=== PATIENT | female | born 1985 | race African-American/Black ===

== ENCOUNTER → 2016-06-28 | Outpatient (CLI) | payer BC | END | disposition home or self-care (01) | LOC: LABWHC1 07:36 | PROVIDERS: ATTEND Obstetrics & Gynecology | DX: O26.90 Pregnancy related conditions, unspecified, unspecified trimester (principal); Z3A.00 Weeks of gestation of pregnancy not specified | CPT/HCPCS: 36415; 82950 ==

== ENCOUNTER 2016-08-08 10:42 | Inpatient (IN) | payer BC ==
--- NOTE | 2016-08-08 10:58 | P.HPOB ---
History of Present Illness H&P Date: 08/08/16 This is a 31-year-old -[place] female 4 para 3003 EDC 2016 at 38 3/7 wks, patient presents this morning with a history of spontaneous amniorrhexis, clear fluid at approximately 7:30 AM. She reports mild irregular contractions to follow. There has been no vaginal bleeding. Fetus is been active throughout the . Past medical history significant for asthma and hayfever. Past surgical history colposcopy of the cervix. Current medications vitamins daily. ALLERGIES no known medical ALLERGIES. Family history significant for hypertension and diabetes. 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 There is no history of tobacco alcohol or drug use. history is significant for asymmetric ventriculomegaly. [facility] has been following. Decision has been made to have the delivery here, platelets to be drawn. Dr. Manzo aware of patient's status. Blood type is O+, rubella status immune. Positive group B strep cultures. Gonorrhea and chlamydia cultures, HIV testing, hepatitis B surface antigen, urine culture all negative. Pap smear negative. VDRL nonreactive. On exam this is a pleasant black female, she is 5 foot 2-1/2 inches, approximately 155 pounds, vital signs are stable and she is afebrile. The general physical exam is within normal limits. The chest is clear. heart tones are in the 140s baseline with frequent accelerations, consistent with reactive NST. There are irregular uterine contractions noted. Cervix is 2 -3 cm dilated 75% effaced, -2 station, vertex presentation. There is clear fluid noted on the perineal body. Impression: 38-3/7 weeks intrauterine , here in early labor, group B strep cultures positive. 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 Plan: Penicillin G prophylaxis per hospital protocol. Oxytocin augmentation as needed. Most maternal and surveillance. Anticipate normal spontaneous vaginal delivery. Plan is for infant's platelets to be drawn. Consider ultrasound of the baby's head pending status. Past Medical History Past Medical History: No Reported History History of Any Multi-Drug Resistant Organisms: None Reported Past Surgical History: No Surgical Hx Reported Past Anesthesia/Blood Transfusion Reactions: No Reported Reaction Past Psychological History: No Psychological Hx Reported Smoking Status: Never smoker Past Alcohol Use History: None Reported Past Drug Use History: None Reported - Past Family History Brother(s) Family Medical History: Diabetes Mellitus Mother Family Medical History: Hypertension Medications and Allergies Home Medications Medication Instructions Recorded Confirmed Type Rtv-Plvf-Lufvn Acid 1 each PO DAILY 02/17/14 02/17/14 History [-U Capsule (formulary)] Allergies Allergy/AdvReac Type Severity Reaction Status Date / Time No Known Allergies Allergy Verified 02/17/14 07:34
[2016-08-08] MEDS ORDERED: OXYTOCIN 10 UNIT/ML 1 ML VIAL IM PRN (11:24)
[2016-08-08] MEDS ORDERED: METHYLERGONOVINE 0.2 MG/ML 1 ML AMP IM PRN (11:24)
[2016-08-08] MEDS ORDERED: LIDOCAINE 1% (PF) 10 MG/ML (30 ML SDV) SQ PRN (11:24)
[2016-08-08] MEDS ORDERED: TERBUTALINE 1 MG/ML VIAL SQ PRN (11:24)
[2016-08-08] MEDS ORDERED: PENICILLIN G POTASSIUM 5,000,000 UNIT in DEXTROSE 5% IN WATER 100 ML IV STA ×2 (11:24)
[2016-08-08] MEDS ORDERED: CARBOPROST TROMETHAMINE 250 MCG/ML 1 ML AMP IM PRN (11:24)
[2016-08-08] MEDS ORDERED: OXYTOCIN 30 UNITS/500 ML NS 30 UNIT in SALINE 1 500ML.BAG IV SCH ×2 (11:30→18:30)
[2016-08-08] MEDS ORDERED: LACTATED RINGERS 1,000 ML IV SCH (11:30)
[2016-08-08 11:33] LABS: Basophils % (A) 0 %; CH 30.4; CHCM 32.9; Eosinophils % (A) 1 %; HCT 33.2 % (34.0-46.0); HGB 10.8 gm/dL (11.4-16.0); Luc # (Auto) 0.12; Luc % (Auto) 2; Lymphocytes # (A) 1.1 k/uL (1.0-4.8); Lymphocytes % (A) 15 %; MCH 30.2 pg (25.0-35.0); MCHC 32.5 g/dL (31.0-37.0); Mean Platelet Volume 7.3; Monocytes # (A) 0.2 k/uL (0-1.0); Monocytes % (A) 2 %; Neutrophils # (A) 5.9 k/uL (1.3-7.7); Neutrophils % (A) 81 %; RBC 3.57 m/uL (3.80-5.40); RDW 13.9 % (11.5-15.5); WBC 7.3 k/uL (3.8-10.6); WBC (Perox) 8.25
[2016-08-08 13:21] VITALS: RESP 16
[2016-08-08] MEDS ORDERED: PENICILLIN G POTASSIUM 2,500,000 UNIT in DEXTROSE 5% IN WATER 100 ML IV SCH ×2 (15:25)
[2016-08-08] MEDS ORDERED: IBUPROFEN 600 MG TAB PO PRN (18:20)
[2016-08-08] MEDS ORDERED: diphenhydrAMINE 50 MG/ML 1 ML VIAL IVP PRN ×2 (18:20)
[2016-08-08] MEDS ORDERED: LANOLIN CREAM 5 GM TUBE TOPICAL PRN (18:20)
[2016-08-08] MEDS ORDERED: SIMETHICONE 80 MG CHEWABLE PO PRN (18:20)
[2016-08-08] MEDS ORDERED: ACETAMINOPHEN TAB 325 MG TAB PO PRN (18:20)
[2016-08-08] MEDS ORDERED: diphenhydrAMINE 25 MG CAP PO PRN (18:20)
[2016-08-08] MEDS ORDERED: WITCH HAZEL 1 EACH MED..PAD TOPICAL PRN (18:20)
[2016-08-08] MEDS ORDERED: diphenhydrAMINE 50 MG CAP PO PRN (18:20)
[2016-08-08] MEDS ORDERED: HYDROCORTISONE 2.5% RECTAL CREAM 30 GM TUBE RECTAL PRN (18:20)
[2016-08-08] MEDS ORDERED: BENZOCAINE/MENTHOL SPRAY 1 GM/SPRAY AEROSOL TOPICAL PRN (18:20)
--- NOTE | 2016-08-08 18:20 | P.PROBDLV ---
Vaginal Delivery Note - . Vaginal Delivery Note: Findings: Female in the vertex presentation with a nuchal cord 1. Apgars of 8 at 1 minute and 9 at 5 minutes weighing 6 pounds 0.5 ounces, 2735 g. Intact, three-vessel cord placenta. No perineal lacerations. EBL approximately 50 mL's. Delivery summary: This is a 31-year-old 4 para 3003 woman who presented at 38-3/7 weeks gestation with spontaneous rupture of membranes at 07 30. She was admitted and Pitocin augmentation of labor was initiated. She is group B strep positive and did receive prophylactic antibiotics per protocol. She progressed to 5 cm by approximately 1700. I was notified at approximately 1750 the patient was 8 cm dilated and proceeded to come to the hospital. By the time I arrived the baby had just delivered with a delivery time of 1803. The infant was in the warmer and appeared pink and vigorous. An intact, three- vessel cord placenta was then delivered after an approximately 5 minute third stage of labor. The vagina, cervix and perineum were inspected and no lacerations were noted. The uterus was massaged and was noted to be firm at the level of the umbilicus. Both middle mother and infant were doing well post delivery in the room. Counts were correct.
[2016-08-08] MEDS ORDERED: SENNOSIDES-DOCUSATE SODIUM 1 EACH TAB PO SCH (20:00)
[2016-08-08] MEDS ORDERED: ZOLPIDEM 5 MG TAB PO PRN (21:00)
[2016-08-09] MEDS ORDERED: IBUPROFEN 600 MG TAB PO ONE (00:45)
--- NOTE | 2016-08-09 10:31 | P.PNOBGVD ---
Subjective - Subjective Principal diagnosis: day 1 Interval history: She is feeling very well with minimal lochia, no pain and breast-feeding successfully. The was admitted to special care nursery secondary to abnormal CBC Patient reports: Reports appetite normal, Reports voiding normally, Reports pain well controlled, Reports ambulating normally [place]: doing well, in NICU Objective - Latest Vital Signs Latest vital signs: Vital Signs Temp Pulse Resp BP Pulse Ox 08/09/16 08:07 97.5 F L 82 16 100/58 08/09/16 04:00 98.0 F 79 16 110/62 08/09/16 00:00 97.9 F 82 16 102/50 08/08/16 20:18 98.3 F 88 16 108/69 08/08/16 19:48 98.3 F 102 H 16 135/65 08/08/16 19:18 98.3 F 85 16 121/75 08/08/16 18:48 85 16 128/73 08/08/16 18:33 97 16 133/76 08/08/16 18:18 97.2 F L 84 16 124/86 08/08/16 11:22 97.7 F 78 16 104/57 100 Intake and Output 08/08/16 08/09/16 08/09/16 22:59 06:59 14:59 Intake Total 500 Output Total 300 Balance 200 Intake: Intake, IV Titration 500 Amount Penicillin G Potassium 5, 500 000,000 unit In Dextrose 5% in Water 100 ml @ 100 mls/hr IV ONCE STA Rx#: [id number] Output: Estimated Blood Loss 300 Other: # Voids 1 2 2 - Exam Extremities: Present: normal Abdomen: Present: normal appearance, soft Uterus: Present: normal, firm - Labs Labs: Abnormal Lab Results - Last 24 Hours (Table) 08/08/16 Range/Units 11:10 RBC 3.57 L (3.80-5.40) m/uL Hgb 10.8 L (11.4-16.0) gm/dL Hct 33.2 L (34.0-46.0) % Assessment and Plan (1) Normal spontaneous vaginal delivery Narrative/Plan: day 1 status post normal spontaneous vaginal delivery. She is recovering well. Infant is currently being observed and treated with antibiotics in the special care nursery. Possible discharge home tomorrow. Current Visit: Yes Status: Acute Code(s): O80 - ENCOUNTER FOR FULL-TERM UNCOMPLICATED DELIVERY SNOMED Code(s): 45338027 (2) Nuchal cord Current Visit: Yes Status: Acute Code(s): O69.82X0 - LABOR AND DEL COMP BY OT CORD ENTANGLE, W/O COMPRSN, UNSP SNOMED Code(s): 735963846 (3) Spontaneous rupture of membranes Current Visit: Yes Status: Acute Code(s): DKC7438 - SNOMED Code(s): 579642599 (4) Carrier of group B Streptococcus Current Visit: No Status: Acute Code(s): Z22.330 - CARRIER OF GROUP B STREPTOCOCCUS SNOMED Code(s): 792443958
--- NOTE | 2016-08-10 11:34 | P.DS ---
Providers Date of admission: 08/08/16 10:42 Expected date of discharge: 08/10/16 Attending physician: Nicole Osei - Discharge Diagnosis(es) (1) Normal spontaneous vaginal delivery Current Visit: Yes Status: Acute (2) Nuchal cord Current Visit: Yes Status: Acute (3) Spontaneous rupture of membranes Current Visit: Yes Status: Acute (4) Carrier of group B Streptococcus Current Visit: No Status: Acute Hospital Course: This is a 31-year-old 4 now para 4 woman who presented at 37+ weeks gestation with spontaneous rupture of membranes. She was admitted and underwent Pitocin augmentation of labor. She received group B strep prophylactic antibiotics. She went on to have a precipitous delivery of a liveborn female infant over an intact perineum. Please see the delivery summary for details. The infant had findings of ventriculomegaly on ultrasound and was evaluated for platelet abnormalities postdelivery. The 's platelets were normal however there was evidence of elevated white blood cell count and CRP therefore the was admitted for antibiotics to the special care nursery. The patient's course was unremarkable. By day #1 she was ambulating and voiding without difficulty and tolerating a general diet. Her lochia was minimal. By day #2 she continued to do extremely well. She was breast-feeding successfully and her vital signs were stable. She was therefore discharged home with routine instructions for postoperative care and follow-up. Patient Condition at Discharge: Good Plan - Discharge Summary Discharge Medication List Mcr-Udrv-Zipds Acid [-U Capsule (formulary)] 1 each PO DAILY [History] Ibuprofen [Motrin] 600 mg PO Q6HR PRN #60 tab 02/18/14 [Rx] Follow up Appointment(s)/Referral(s): Nicole Osei MD [STAFF PHYSICIAN] - 6 Weeks Activity/Diet/Wound Care/Special Instructions: Follow-up in the office in 6 weeks . Call with any concerning signs or symptoms including heavy vaginal bleeding, severe abdominal pain, fever greater than 101, swelling or redness of the lower extremities, foul vaginal discharge, or signs of depression. Nothing in the vagina for 6 weeks after delivery, specifically no intercourse. Discharge Disposition: HOME SELF-CARE
[2016-08-10 16:09] VITALS: BP 112/63; PULSE 68; TEMP 98.6
== END 2016-08-10 18:48 | disposition home or self-care (01) | DRG 775 ==
LOC: 4FBP 10:42
PROVIDERS: ADMIT Obstetrics & Gynecology; ATTEND Obstetrics & Gynecology
PROC: 10E0XZZ Delivery of Products of Conception, External Approach (ICD-10-PCS; principal; 2016-08-08)
DX: O69.81X0 Labor and delivery complicated by cord around neck, without compression, not applicable or unspecified (principal); O35.0XX0 Maternal care for (suspected) central nervous system malformation in fetus, not applicable or unspecified; J45.909 Unspecified asthma, uncomplicated; O62.3 Precipitate labor; O99.52 Diseases of the respiratory system complicating childbirth; O99.824 Streptococcus B carrier state complicating childbirth; Z37.0 Single live birth; Z3A.37 37 weeks gestation of pregnancy; Z83.3 Family history of diabetes mellitus; Z82.49 Family history of ischemic heart disease and other diseases of the circulatory system; Z87.42 Personal history of other diseases of the female genital tract
CPT/HCPCS: 85025; 88307

== ENCOUNTER → 2019-11-11 | Outpatient (CLI) | payer BC | END | disposition home or self-care (01) | LOC: LABWHC1 09:39 | PROVIDERS: ATTEND Obstetrics & Gynecology | DX: Z36.9 Encounter for antenatal screening, unspecified (principal) | CPT/HCPCS: 36415; 82950 ==

== ENCOUNTER 2020-01-13 13:02 | Outpatient (CLI) | payer BC ==
[2020-01-13 14:40] VITALS: BP 119/70; PULSE 103; RESP 18; TEMP 97.2
--- NOTE | 2020-01-17 11:31 | P.MSEPDOC ---
Presenting Problems - Arrival Data Date of Arrival on Unit: 01/13/20 Time of Arrival on Unit: 13:02 Mode of Transport: Ambulatory - Complaint OB-Reason for Admission/Chief Complaint: Vaginal Bleeding Comment: pt presents to triage for spotting yesterday and today, had some cramping last night Medical History - Information : 5 Para: 4 Term: 4 : 0 Abortions: Spontaneous or Elective: 0 Number of Living Children: 4 - Gestational Age Gestational Age by ALMAZ (wks/days): 35 Weeks and 2 Days Review of Systems - Review of Systems Constitutional: No problems Breast: No problems ENT: No problems Cardiovascular: No problems Respiratory: No problems Gastrointestinal: No problems Genitourinary: No problems Musculoskeletal: No problems Neurological: No problems Skin: No problems Vital Signs - Temperature Temperature: 97.2 F Temperature Source: Temporal Artery Scan - Pulse Right Brachial Pulse Rate: 103 Pulse Assessment Method: Automatic Cuff - Respirations Respiratory Rate: 18 Oxygen Delivery Method: Room Air - Blood Pressure Right Arm Blood Pressure: 119/70 Blood Pressure Mean: 86 Blood Pressure Source: Automatic Cuff Medical Screen Scoring (Pre) - Cervical Exam Dilation: Exam Deferred Effacement: Exam Deferred Membranes: Intact - Uterine Contractions Frequency: N/A Duration: N/A Intensity: N/A - Maternal Vital Signs Maternal Temperature: N/A Maternal Blood Pressure: N/A Signs of Preeclampsia: N/A Maternal Respirations: N/A - Maternal Trauma Maternal Trauma: N/A - Assessment - Baby A Baseline FHR: 140 Heart Rate - NICHD Category: Category I (Normal) = 0 NST: Reactive Position: N/A Station: N/A - Total Score - Baby A Total Score - Baby A: 0 - Total Score - Baby B Total Score - Baby B: 0 - Total Score - Baby C Total Score - Baby C: 0 - Level of Risk - Baby A Level of Risk - Baby A: Low (0-5) - Level of Risk - Baby B Level of Risk - Baby B: Low (0-5) - Level of Risk - Baby C Level of Risk - Baby C: Low (0-5) Physician Notification (Pre) - Physician Notified Physician Notified Date: 01/13/20 Physician Notified Time: 13:36 New Order Received: Yes - Notification Comment Comment: pt has reactive nst, no bleeding noted by this RN, cervical exam done per order, 1/thick/high, orders to discharge pt home, she has scheduled apt on 01/[address] Osei, reviewed s/s of labor, kick counts, and increase fluids with pt, Disposition - Disposition OB Disposition: Triage, Discharge to home, Written follow up instructions reviewed Discharge Date: 01/13/20 Discharge Time: 13:45 I agree with the RN Medical Screening Exam: Yes Risk & Benefit of care provided described in d/c instruction: Yes Diagnosis: SPOTTING COMPLICATING , THIRD TRIMESTER
== END 2020-01-13 13:45 | disposition home or self-care (01) ==
LOC: FBPOP 13:02
PROVIDERS: ATTEND Obstetrics & Gynecology
DX: O26.853 Spotting complicating pregnancy, third trimester (principal); Z3A.35 35 weeks gestation of pregnancy
CPT/HCPCS: 59025; 99213

== ENCOUNTER 2020-02-12 00:55 | Inpatient (IN) | payer BC ==
[2020-02-12] MEDS ORDERED: LIDOCAINE 0.5% (PF) 5 MG/ML (50 ML SDV) SQ PRN (01:34)
[2020-02-12] MEDS ORDERED: TERBUTALINE 1 MG/ML VIAL SQ PRN (01:34)
[2020-02-12] MEDS ORDERED: OXYTOCIN 10 UNIT/ML 1 ML VIAL IM PRN (01:34)
[2020-02-12] MEDS ORDERED: CARBOPROST TROMETHAMINE 250 MCG/ML 1 ML AMP IM PRN (01:34)
[2020-02-12] MEDS ORDERED: PENICILLIN G POTASSIUM 5,000,000 UNIT in DEXTROSE 5% IN WATER 100 ML IVPB STA ×2 (01:34)
[2020-02-12] MEDS ORDERED: METHYLERGONOVINE 0.2 MG/ML 1 ML AMP IM PRN (01:34)
[2020-02-12] MEDS ORDERED: LACTATED RINGERS 1,000 ML IV SCH (01:45)
[2020-02-12 01:52] LABS: Basophils % (A) 0 %; Eosinophils # (A) 0.2 k/uL (0-0.7); Eosinophils % (A) 3 %; HCT 38.1 % (34.0-46.0); HGB 12.5 gm/dL (11.4-16.0); Lymphocytes # (A) 1.2 k/uL (1.0-4.8); Lymphocytes % (A) 19 %; MCH 30.4 pg (25.0-35.0); MCHC 32.7 g/dL (31.0-37.0); Mean Platelet Volume 8.1; Monocytes # (A) 0.2 k/uL (0-1.0); Monocytes % (A) 3 %; Neutrophils # (A) 4.8 k/uL (1.3-7.7); Neutrophils % (A) 74 %; Platelet Count 214 k/uL (150-450); RBC 4.09 m/uL (3.80-5.40); RDW 13.6 % (11.5-15.5); WBC 6.5 k/uL (3.8-10.6)
--- NOTE | 2020-02-12 03:10 | P.HPOB ---
History of Present Illness H&P Date: 02/12/20 Chief Complaint: Labor at 39-4/7 weeks This is a 34-year-old 5 para 4004 woman who presents in spontaneous active labor at 39-4/7 weeks' gestation. She has an estimated due date of 02/15/2020 based on first trimester ultrasound. She reports onset of regular painful contractions over the last couple of hours. She denies leakage of fluids or vaginal bleeding. Upon presentation to labor and delivery triage she is found to be 5+ centimeters dilated and irregularly ann-marie. She is known group B strep positive. She has a history of rapid labor. Obstetrical history is significant for term spontaneous vaginal deliveries in 2009, 2011, 2013 and 2017. Laboratory data: Blood type O positive, antibody screen negative, rubella immune, VDRL nonreactive, hepatitis B surface antigen negative, HIV negative, gonorrhea and clinic cultures negative, diabetes screening within normal limits, group B strep positive Review of Systems All systems: negative Past Medical History Past Medical History: No Reported History History of Any Multi-Drug Resistant Organisms: None Reported Past Surgical History: No Surgical Hx Reported Past Anesthesia/Blood Transfusion Reactions: No Reported Reaction Past Psychological History: No Psychological Hx Reported Smoking Status: Never smoker Past Alcohol Use History: None Reported Past Drug Use History: None Reported - Past Family History Brother(s) Family Medical History: Diabetes Mellitus Mother Family Medical History: Hypertension Medications and Allergies Home Medications Medication Instructions Recorded Confirmed Type Gck-Hhoj-Vvuli Acid 1 each PO DAILY 02/17/14 02/12/20 History [-U Capsule (formulary)] Allergies Allergy/AdvReac Type Severity Reaction Status Date / Time No Known Allergies Allergy Verified 02/12/20 00:58 Exam Vital Signs Temp Pulse Resp BP Pulse Ox 02/12/20 01:54 97.5 F L 81 16 112/68 98 Intake and Output 02/11/20 02/11/20 02/12/20 14:59 22:59 06:59 Other: Weight 87.09 kg Targeted physical exam is performed. Patient is visibly gravid -Citizen Of [place] female in active labor. On pelvic examination the cervix is 7 cm dilated, 100% effaced and the vertex is in the -2 station. Artificial rupture of membranes undertaken and clear fluid is noted. Currently heart tones are category 1 however she did previously have a bradycardic event with heart tones down to 70 bpm for approximately 3 minutes. This did resolve. There is no good variability and no repetitive decelerations. She is ann-marie every 4-5 minutes spontaneously. Results Result Diagrams: 02/12/20 01:35 Assessment and Plan (1) Carrier of group B Streptococcus Current Visit: No Status: Acute Code(s): Z22.330 - CARRIER OF GROUP B STREPTOCOCCUS SNOMED Code(s): 898814455 (2) Spontaneous onset of labor Current Visit: Yes Status: Acute Code(s): XHA7836 - SNOMED Code(s): 67454748 Plan: 34-year-old 5 para 4 woman at 39-4/7 weeks gestation in active labor. Group B strep positive and Rh+. heart tones currently reassuring. Anticipate normal spontaneous vaginal delivery.
[2020-02-12] MEDS ORDERED: OXYTOCIN 30 UNITS/500 ML NS 30 UNIT in SALINE 1 500ML.BAG IV SCH (04:15)
[2020-02-12] MEDS ORDERED: PENICILLIN G POTASSIUM 2,500,000 UNIT in DEXTROSE 5% IN WATER 100 ML IVPB SCH ×2 (05:35)
[2020-02-12] MEDS ORDERED: ACETAMINOPHEN TAB 325 MG TAB PO PRN (06:09)
[2020-02-12] MEDS ORDERED: SIMETHICONE 80 MG CHEWABLE PO PRN (06:09)
[2020-02-12] MEDS ORDERED: LANOLIN CREAM 5 GM TUBE TOPICAL PRN (06:09)
[2020-02-12] MEDS ORDERED: diphenhydrAMINE 25 MG CAP PO PRN (06:09)
[2020-02-12] MEDS ORDERED: BENZOCAINE/MENTHOL SPRAY 1 GM/SPRAY AEROSOL TOPICAL PRN (06:09)
[2020-02-12] MEDS ORDERED: diphenhydrAMINE 50 MG/ML 1 ML VIAL IVP PRN ×2 (06:09)
[2020-02-12] MEDS ORDERED: ZOLPIDEM 5 MG TAB PO PRN (06:09)
[2020-02-12] MEDS ORDERED: HYDROCORTISONE 2.5% RECTAL CREAM 30 GM TUBE RECTAL PRN (06:09)
[2020-02-12] MEDS ORDERED: diphenhydrAMINE 50 MG CAP PO PRN (06:09)
--- NOTE | 2020-02-12 06:09 | P.PROBDLV ---
Vaginal Delivery Note - . Vaginal Delivery Note: Findings: Female in the vertex presentation with Apgars of 9 at 1 minute and 10 at 5 minutes, weight pending. Intact three-vessel cord placenta. No perineal lacerations. EBL approximately 100 mL's. Delivery summary: This is a 34-year-old 5 para 4004 woman who presented in spontaneous active labor at 39-4/7 weeks' gestation. Upon presentation she was 5 cm dilated. She underwent artificial rupture of membranes at 7 cm dilated and then did have some decrease in contraction activity. Pitocin augmentation was initiated. She reached complete cervical dilation with strong urge to push. She was repositioned, prepped and draped in the dorsal modified Renato position. With additional maternal effort 2 head delivered from the direct occiput anterior position. Nose and mouth were bulb suctioned. Nuchal cord 1 was reduced. The anterior followed by the posterior shoulders were then delivered without difficulty. The rest the was delivered onto the field for the nose and mouth were further bulb suctioned. was placed on the maternal abdomen and eventually the cord was clamped and cut. Apgars were 9 at 1 minute and 9 at 5 minutes. The perineum was inspected and noted to be intact. An intact, three-vessel cord placenta was then expressed. The uterus was massaged and noted to be firm below the level of the umbilicus. Patient received Pitocin following the third stage of labor. The vagina and cervix are reinspected and no lacerations were noted. All counts were correct. Both mother and were doing well post delivery in the room.
[2020-02-12] MEDS ORDERED: OXYTOCIN 20 UNITS/1000 ML NS 1,000 ML IV SCH (06:15)
[2020-02-12] MEDS: IBUPROFEN 600 MG TAB PO PRN ×2 (06:52→13:22)
[2020-02-12] MEDS: SENNOSIDES-DOCUSATE SODIUM 1 EACH TAB PO SCH ×2 (11:41→20:57)
[2020-02-12 17:02] VITALS: RESP 16
[2020-02-13 07:31] LABS: Basophils % (A) 0 %; Eosinophils # (A) 0.1 k/uL (0-0.7); Eosinophils % (A) 1 %; HCT 37.3 % (34.0-46.0); HGB 12.1 gm/dL (11.4-16.0); Lymphocytes # (A) 1.2 k/uL (1.0-4.8); Lymphocytes % (A) 16 %; MCH 30.2 pg (25.0-35.0); MCHC 32.3 g/dL (31.0-37.0); MCV 93.6 fL (80.0-100.0); Mean Platelet Volume 8.4; Monocytes # (A) 0.2 k/uL (0-1.0); Monocytes % (A) 3 %; Neutrophils % (A) 80 %; Platelet Count 203 k/uL (150-450); RBC 3.99 m/uL (3.80-5.40); RDW 13.5 % (11.5-15.5); WBC 7.5 k/uL (3.8-10.6)
--- NOTE | 2020-02-13 07:42 | P.DS ---
Providers Date of admission: 02/12/20 01:23 Expected date of discharge: 02/13/20 Attending physician: Nicole Osei Primary care physician: Stated None Hospital Course: This is a 34-year-old black female 5 para 4004 EDC 02/15/2020 at 39-4/7 weeks' gestation. Patient presented in active spontaneous labor, unremarkable. Group B strep cultures positive, rubella status immune, blood type O+. Please see dictated history and physical for details. Patient progressed well through labor, penicillin G was given per hospital protocol. She went on to deliver vaginally a liveborn female infant with scores of 9 and 10 at one and 5 minutes respectively. There was a nuchal cord 1. No perineal lacerations. Estimated blood loss 100 mL's. Baby weighed 3470 g or 7 lbs. 10 oz. Please see dictated delivery note for details. This morning the patient is doing quite well. She is voiding, ambulating, passing flatus without difficulty. Vital signs are stable and she is afebrile. Fundus is firm and in the midline, symmetric and 18 week size. Extremities are negative for edema. Chest is clear in all mcdonnell. [place] is doing well. Patient is judged to be in very good condition for discharge home. She will follow-up with me in the office in 6 weeks. I have given her prescription for a double electric breast pump. She will continue taking her vitamin daily. She will call with any fevers shakes or chills, foul smelling or copious lochia, with the passage of large blood clots, with any pain not alleviated by Advil or Aleve, or indeed with any concerns. Assessment: Doing well day #1 Patient Condition at Discharge: Good Plan - Discharge Summary Discharge Rx Participant: No New Discharge Prescriptions: No Action Bhg-Myof-Jqxxf Acid [-U Capsule (formulary)] 1 each PO DAILY Discharge Medication List Uyv-Lxdg-Psdtb Acid [-U Capsule (formulary)] 1 each PO DAILY 02/17/14 [History] Follow up Appointment(s)/Referral(s): Nicole Osei MD [STAFF PHYSICIAN] - 6 Weeks Discharge Disposition: HOME SELF-CARE
[2020-02-13 08:46] VITALS: BP 112/62; PULSE 76; TEMP 98.3
[2020-02-13] MEDS: SENNOSIDES-DOCUSATE SODIUM 1 EACH TAB PO SCH (08:46)
== END 2020-02-13 12:30 | disposition home or self-care (01) | DRG 807 ==
LOC: FBPOP 00:55 → 4FBP 01:23
PROVIDERS: ADMIT Obstetrics & Gynecology; ATTEND Obstetrics & Gynecology
PROC: 10E0XZZ Delivery of Products of Conception, External Approach (ICD-10-PCS; principal; 2020-02-12)
DX: O99.824 Streptococcus B carrier state complicating childbirth (principal); Z37.0 Single live birth; O69.81X0 Labor and delivery complicated by cord around neck, without compression, not applicable or unspecified; Z3A.39 39 weeks gestation of pregnancy; Z79.899 Other long term (current) drug therapy; Z83.3 Family history of diabetes mellitus; Z82.49 Family history of ischemic heart disease and other diseases of the circulatory system
CPT/HCPCS: 85025; 86850; 86900; 86901; 99213

== ENCOUNTER 2022-01-23 08:01 | Inpatient (IN) | payer BC ==
[2022-01-24] MEDS ORDERED: LIDOCAINE 0.5% (PF) 5 MG/ML (50 ML SDV) SQ PRN (06:52)
[2022-01-24] MEDS ORDERED: METHYLERGONOVINE 0.2 MG/ML 1 ML AMP IM PRN (06:52)
[2022-01-24] MEDS ORDERED: TERBUTALINE 1 MG/ML VIAL SQ PRN (06:52)
[2022-01-24] MEDS ORDERED: CARBOPROST TROMETHAMINE 250 MCG/ML 1 ML AMP IM PRN (06:52)
[2022-01-24] MEDS ORDERED: OXYTOCIN 10 UNIT/ML 1 ML VIAL IM PRN (06:52)
[2022-01-24] MEDS ORDERED: OXYTOCIN 30 UNITS/500 ML NS 30 UNIT in SALINE 1 500ML.BAG IV SCH (07:00)
[2022-01-24] MEDS ORDERED: LACTATED RINGERS 1,000 ML IV SCH (07:00)
--- NOTE | 2022-01-24 08:03 | P.HPOB ---
History of Present Illness H&P Date: 01/24/22 Chief Complaint: Here for elective induction of labor at 40 and one sevenths week This is a 36-year-old black female 6 para 5005 EDC 01/23/2022 at 40 and one sevenths weeks' gestation who presents this morning with a favorable multiparous cervix for induction of labor. Fetus is been active throughout the . She denies fluid leakage or vaginal bleeding. Rare irregular contractions. history is significant for blood type O positive, rubella status immune. Group B strep cultures negative. Hepatitis B surface antigen, HIV testing, gonorrhea and chlamydia cultures all negative. One-hour Glucola within normal limits. ALLERGIES none known. Current medications vitamins daily. Past medical history is significant for asthma, co-vid earlier in the , hayfever. Past surgical history colposcopy 2006. Social history patient is , she is a nonsmoker, she denies alcohol or drug use. On exam she is 5 foot 3 inches, 209 pounds, blood pressure 130/65. The general physical exam is within normal limits. The chest is clear to auscultation in all mcdonnell. Cervix is 4 cm dilated, 60% effaced, -2 station, vertex presentation. Artificial amniorrhexis reveals clear fluid. heart rate is overall reassuring, there was a deceleration noted upon first admission but none since. Impression: 40 and one sevenths weeks intrauterine , advanced maternal age, here for induction of labor. All signs reassuring. Plan: Analgesic options reviewed. Oxytocin per hospital protocol. Close maternal and surveillance. Anticipate normal spontaneous vaginal delivery. Review of Systems Constitutional: Reports as per HPI Past Medical History Past Medical History: No Reported History, Asthma History of Any Multi-Drug Resistant Organisms: None Reported Past Surgical History: No Surgical Hx Reported Past Anesthesia/Blood Transfusion Reactions: No Reported Reaction Past Psychological History: No Psychological Hx Reported Smoking Status: Never smoker Past Alcohol Use History: None Reported Past Drug Use History: None Reported - Past Family History Brother(s) Family Medical History: Diabetes Mellitus Mother Family Medical History: Hypertension Medications and Allergies Home Medications Medication Instructions Recorded Confirmed Type Gbq-Tcsi-Iwxdq Acid 1 each PO DAILY 02/17/14 01/24/22 History [-U Capsule (formulary)] Ferrous Sulfate [Feosol] 325 mg PO DAILY 01/24/22 01/24/22 History Allergies Allergy/AdvReac Type Severity Reaction Status Date / Time No Known Allergies Allergy Verified 01/24/22 06:51 Exam Intake and Output 01/23/22 01/24/22 01/24/22 22:59 06:59 14:59 Other: Weight 94.801 kg See dictation under HPI please Assessment and Plan Assessment: 40 and one sevenths weeks intrauterine , here for induction of labor with favorable multiparous cervix, advanced maternal age. Plan: Oxytocin per hospital protocol. Close maternal and surveillance. Analgesic options reviewed. Anticipate normal spontaneous vaginal delivery. Time with Patient: Less than 30
[2022-01-24 08:05] LABS: Basophils % (A) 1 %; Eosinophils # (A) 0.1 k/uL (0-0.7); Eosinophils % (A) 2 %; HCT 38.9 % (34.0-46.0); HGB 12.5 gm/dL (11.4-16.0); Lymphocytes # (A) 0.9 k/uL (1.0-4.8); Lymphocytes % (A) 15 %; MCH 29.9 pg (25.0-35.0); MCV 93.3 fL (80.0-100.0); Mean Platelet Volume 8.1; Monocytes # (A) 0.2 k/uL (0-1.0); Monocytes % (A) 4 %; Neutrophils # (A) 4.7 k/uL (1.3-7.7); Neutrophils % (A) 78 %; Platelet Count 221 k/uL (150-450); RBC 4.17 m/uL (3.80-5.40); RDW 13.6 % (11.5-15.5); WBC 5.9 k/uL (3.8-10.6)
[2022-01-24] MEDS ORDERED: diphenhydrAMINE 25 MG CAP PO PRN (11:35)
[2022-01-24] MEDS ORDERED: LANOLIN CREAM 5 GM TUBE TOPICAL PRN (11:35)
[2022-01-24] MEDS ORDERED: SIMETHICONE 80 MG CHEWABLE PO PRN (11:35)
[2022-01-24] MEDS ORDERED: BENZOCAINE/MENTHOL SPRAY 1 GM/SPRAY AEROSOL TOPICAL PRN (11:35)
[2022-01-24] MEDS ORDERED: diphenhydrAMINE 50 MG CAP PO PRN (11:35)
[2022-01-24] MEDS ORDERED: ZOLPIDEM 5 MG TAB PO PRN (11:35)
[2022-01-24] MEDS ORDERED: HYDROCORTISONE 2.5% RECTAL CREAM 30 GM TUBE RECTAL PRN (11:35)
[2022-01-24] MEDS ORDERED: diphenhydrAMINE 50 MG/ML 1 ML VIAL IVP PRN ×2 (11:35)
--- NOTE | 2022-01-24 11:35 | P.PROBDLV ---
Vaginal Delivery Note - . Vaginal Delivery Note: This is a 36-year-old 6 para 5005 EDC 01/23/2022 at 40 and one sevenths week who presented today for induction with favorable multiparous cervix. Artificial amniorrhexis revealed clear fluid. is remarkable for negative group B strep cultures, rubella status immune, blood type O positive. Please see dictated history and physical for details. Patient progressed well through the first stage of labor and became completely dilated at 1117 hours. Perineal body was prepped and draped in usual sterile fashion. With excellent any effective maternal expulsive efforts the 's head delivered occiput anterior and restituted accordingly. There was no nuchal cord noted. The patient was officially delivered of a liveborn female at 1118 hours. Umbilical cord was allowed to stop pulsing, then doubly clamped and suture ligated. Infant was handed to waiting nurses for evaluation where scores of 9 and 9 at one and 5 minutes respectively were given. Placenta delivered spontaneously, it was inspected and noted to be intact with tr ivascular cord at 1123 hours. Uterus is then massaged. Careful inspection of cervix, vagina, perineum, periurethral, and perirectal areas reveals no lacerations or defects. Infant weighs 7 lbs. 13 oz. or 3530 g. Fundus is firm and in the midline, symmetric and 18 week size upon completion of delivery. All sponge needle and enhancement counts are correct. Patient is allowed to begin the bonding experience in the LDR with her and daughter.
[2022-01-24] MEDS ORDERED: IBUPROFEN 600 MG TAB PO PRN (11:47)
[2022-01-25] MEDS: SENNOSIDES-DOCUSATE SODIUM 1 EACH TAB PO SCH ×2 (00:55→09:45)
[2022-01-25 03:28] VITALS: TEMP 97.8
[2022-01-25 07:41] LABS: Basophils % (A) 0 %; Eosinophils # (A) 0.1 k/uL (0-0.7); Eosinophils % (A) 1 %; HCT 36.4 % (34.0-46.0); HGB 11.6 gm/dL (11.4-16.0); Lymphocytes # (A) 0.9 k/uL (1.0-4.8); Lymphocytes % (A) 13 %; MCV 93.7 fL (80.0-100.0); Mean Platelet Volume 7.8; Monocytes # (A) 0.3 k/uL (0-1.0); Monocytes % (A) 5 %; Neutrophils # (A) 5.3 k/uL (1.3-7.7); Neutrophils % (A) 79 %; Platelet Count 204 k/uL (150-450); RBC 3.89 m/uL (3.80-5.40); RDW 13.5 % (11.5-15.5); WBC 6.7 k/uL (3.8-10.6)
[2022-01-25 09:38] VITALS: BP 103/68; PULSE 87; RESP 14
--- NOTE | 2022-01-25 10:33 | P.DS ---
Providers Date of admission: 01/24/22 06:09 Expected date of discharge: 01/25/22 Attending physician: Nicole Osei Primary care physician: Stated None Hospital Course: This is a 36-year-old female 6 para 5005 EDC 01/23/2022 at 40 and one sevenths weeks' gestation who presented for induction with favorable multiparous cervix. remarkable for blood type O+, rubella status immune, group B strep cultures negative. Please see my dictated history and physical for details. Artificial amniorrhexis revealed clear fluid. Oxytocin was started. Pain medication was offered and declined. Patient went on to rather swiftly deliver a liveborn female infant with scores of 9 and 9 at one and 5 minutes respectively. Infant weight 3530 g or 7 lbs. 13 oz. There were no lacerations encountered. Estimated blood loss 150 mL's. Please see dictated delivery note for details. This morning the patient is doing well. She is voiding, ambulate in, passing flatus without difficulty. Vital signs are stable and she is afebrile. Fundus is firm and in the midline, symmetric and 18 week size. Extremities are negative for edema. Chest is current all mcdonnell. Patient is judged to be in excellent condition for discharge home. She'll follow-up with me in the office in 6 weeks. We have briefly reviewed options for contraception. She is reminded no intercourse, tampons or douching. She will continue taking her vitamin daily. She will call with any fevers shakes or chills, foul smelling or copious lochia, with the passage of large blood clots, with any pain not alleviated by claz-[id number] products, or indeed with any questions or concerns. Assessment: Doing well first day Patient Condition at Discharge: Good Plan - Discharge Summary Discharge Rx Participant: No New Discharge Prescriptions: No Action [id number] Acid [-U Capsule (formulary)] 1 each PO DAILY Ferrous Sulfate [Feosol] 325 mg PO DAILY Discharge Medication List [id number] Acid [-U Capsule (formulary)] 1 each PO DAILY 02/17/14 [History] Ferrous Sulfate [Feosol] 325 mg PO DAILY 01/24/22 [History] Follow up Appointment(s)/Referral(s): Nicole Osei MD [STAFF PHYSICIAN] - 6 Weeks Discharge Disposition: HOME SELF-CARE
== END 2022-01-25 14:00 | disposition home or self-care (01) | DRG 807 ==
LOC: 4FBP 01-24 06:09
PROVIDERS: ADMIT Obstetrics & Gynecology; ATTEND Obstetrics & Gynecology
PROC: 10E0XZZ Delivery of Products of Conception, External Approach (ICD-10-PCS; principal; 2022-01-24)
PROC: 10907ZC Drainage of Amniotic Fluid, Therapeutic from Products of Conception, Via Natural or Artificial Opening (ICD-10-PCS; 2022-01-24)
PROC: 4A0HXCZ Measurement of Products of Conception, Cardiac Rate, External Approach (ICD-10-PCS; 2022-01-24)
PROC: 3E033VJ Introduction of Other Hormone into Peripheral Vein, Percutaneous Approach (ICD-10-PCS; 2022-01-24)
DX: O76 Abnormality in fetal heart rate and rhythm complicating labor and delivery (principal); Z37.0 Single live birth; O99.52 Diseases of the respiratory system complicating childbirth; J45.909 Unspecified asthma, uncomplicated
CPT/HCPCS: 85025; 86850; 86900; 86901